=== PATIENT | female | born 2000 | race Caucasian/White ===

== ENCOUNTER 2022-12-26 16:10 | Emergency (ER) | payer OTHER, SELFPAY ==
[2022-12-26 16:25] VITALS: BP 123/72; PULSE 81; RESP 16; TEMP 36.9; O2SAT 99
--- NOTE | 2022-12-26 16:47 | ED.WOUNDLAC ---
HPI - Wound/Laceration General Chief Complaint: Wound/Laceration Stated Complaint: Left Hand Laceration Time Seen by Provider: 12/26/22 16:48 Source: patient Mode of arrival: ambulatory Limitations: no limitations History of Present Illness HPI narrative: Patient is a 22-year-old female that presents with 1 cm laceration to left hand from knife. Patient was moving and accidentally stabbed herself in the hand. unsure of last tetanus shot. Reports pain to 2nd and 3rd digit but no numbness, tingling, weakness. Active bleeding noted when palm is extended Related Data Home Medications Medication Instructions Recorded Confirmed spironolactone 50 mg tablet 50 mg PO DAILY 08/21/21 03/27/22 levonorgestrel-ethinyl estradiol tablet 12/26/22 0.1 mg-20 mcg tablet (Vienva) Allergies Allergy/AdvReac Type Severity Reaction Status Date / Time cat dander Allergy Unknown Unknown Verified 12/26/22 16:32 dog dander Allergy Unknown Unknown Verified 12/26/22 16:32 grass pollen Allergy Unknown Unknown Verified 12/26/22 16:32 mold Allergy Unknown Unknown Verified 12/26/22 16:32 Review of Systems Review of Systems: All systems reviewed & are unremarkable except as noted in HPI and below Constitutional: Constitutional: Denies body ache(s), Denies fever(s), Denies headache(s), Denies malaise and Denies weakness Eyes: Eyes: Denies loss of vision ENT: Denies otalgia, Denies headache(s), Denies nasal discharge, Denies sinus pain and Denies sore throat Cardiovascular: Cardiovascular: Denies chest pain, Denies irregular heart rhythm and Denies dyspnea Respiratory: Respiratory: Denies dyspnea Gastrointestinal: Gastrointestinal: Denies abdominal pain, Denies melena, Denies hematochezia, Denies diarrhea, Denies nausea and Denies vomiting Musculoskeletal: Musculoskeletal: Denies back pain, Denies myalgias and Denies arthralgias Integumentary/Breasts: Skin/Breast: Denies pruritus, Denies rash and Reports wounds (Laceration to left palm) Neurologic: Denies headache(s), Denies loss of vision and Denies weakness Psychiatric: Psychiatric: Reports no additional psychiatric complaints PMFSH Past Medical History Medical History Concussion age 16 Surgical History Surgical History H/O elbow surgery Family History Family History Father Depression Grandparent Breast cancer Depression Grandparent Depression Social History Social History (Updated 09/11/22 @ 10:45 by NATASHA Doss) Smoking status: Never smoker Alcohol intake: current Substance use: never Lack of Transportation: No Lack of Food: Never True Current Housing: I Have Housing Concerned About Future Housing: No Difficulty Paying Gas/Electric Bills: No Difficulty Paying for Meds: No Education: Bachelor's Degree Difficulty w/ Childcare or Family Care: No Living arrangements: with friend(s) Comments At time of signature, agree with nursing past medical, surgical, social and family history. There is no relevant family history pertinent to the presenting complaint. Exam Const: General: cooperative, healthy appearing, comfortable, no acute distress and well nourished Nutritional Appearance: well nourished Orientation/consciousness: patient oriented x3 Limitations: no limitations HENMT: Head: normal to inspection, normocephalic and atraumatic Ears: external ears normal Face/Nose/Sinus: Normal external nose present, normal facial exam and face symmetric Face and sinus: normal facial exam and face symmetric Mouth: Yes lip normal Eyes: General: appearance normal, both eyes and all related structures Alignment and Position: alignment normal and position normal Periorbital: periorbital findings normal Eyelids: eyelids normal Pupils: Equal, round and reactive pupils present
[2022-12-26] MEDS: TETANUS,DIPHTHERIA,AC PERTUSSIS ADULT (0.5 ML) BOOSTRIX IM (17:16)
--- NOTE | 2022-12-26 17:24 | PC.NURSE ---
spa coordinator in to do wound irrigation and skin glue.
== END 2022-12-26 17:36 | disposition home or self-care (01) ==
PROVIDERS: Emergency Provider Nurse Practitioner Family; PCP Emergency Medicine
DX: S61.412A Laceration without foreign body of left hand, initial encounter (principal); W26.0XXA Contact with knife, initial encounter; Z23 Encounter for immunization
CPT/HCPCS: 12001; 90471; 90715; 99212; G0463

== ENCOUNTER 2023-01-07 20:47 | Emergency (ER) | payer OTHER, SELFPAY ==
[2023-01-07 20:52] VITALS: BP 110/69; PULSE 104; RESP 20; TEMP 37.3; O2SAT 100
[2023-01-07 21:09] LABS: Hematocrit 44.6 % (37.0-47.0); Hemoglobin 14.7 g/dL (12.0-15.0); Mean Corpuscular Hemoglobin 28.7 pg (26-34); Mean Corpuscular Volume 87.1 fl (80-100); Mean Platelet Volume 10.4 fl (7.4-10.4); Platelet Count Result 365 k/mm3 (150-375); Red Blood Count 5.12 M/mm3 (4.2-5.4); Red Cell Distribution Width 12.5 % (11.5-14.5); White Blood Count 13.4 K/mm3 (4.5-10.0)
[2023-01-07 21:12] LABS: Appearance Urine Clear (Clear); Bacteria Urine 1+ /hpf; Bilirubin Urine Negative (Negative); Blood Urine Negative (Negative); Color Urine Yellow (Yellow); Glucose Urine UA Negative (Negative); Ketones Urine 4+ mg/dL (Negative); Leukocyte Esterase Ur Negative LEU/UL (Negative); Nitrate Urine Negative (Negative); Non Pathogenic Casts 0-2; Protein Urine Trace mg/dL (Negative); Squamous Epithelial Cell Urine Few /hpf (Few)
[2023-01-07 21:15] LABS: Add Urine Microscopic? YES; Specific Grav Ur 1.036 (1.001-1.035)
[2023-01-07 21:18] LABS: Alanine Aminotransferase 23 U/L (6-35); Albumin Level 4.6 g/dL (3.5-5.1); Alkaline Phosphatase 57 U/L (38-126); Anion Gap 9 mmol/L (8-16); Aspartate Amino Transferase 24 U/L (14-36); Bilirubin,Total 0.7 mg/dL (0.2-1.3); Blood Urea Nitrogen 20 mg/dL (7-17); Calcium 8.9 mg/dL (8.4-10.2); Carbon Dioxide 24 mmol/L (22-30); Chloride 105 mmol/L (98-107); Estimated CRCL calculation 94 ml/min; Estimated Glomerular Filt Rate > 60; Glucose 124 mg/dL (65-110); Lipase 45 U/L (23-300); Potassium 3.5 mmol/L (3.4-5.0); Sodium 138 mmol/L (137-145)
[2023-01-07 21:25] VITALS: BP 126/72; PULSE 97; RESP 15; TEMP 37.7; O2SAT 97
[2023-01-07 21:27] VITALS: BP 124/63; PULSE 96
[2023-01-07 21:28] VITALS: BP 100/61; BP 124/64; PULSE 102; PULSE 120
[2023-01-07 21:29] LABS: Band Neutrophils Percent 2 % (0-6); Lymphocytes Absolute Manual 0.67 K/mm3 (1.1-4.5); Monocytes Percent Manual 6 % (3-9); Neutrophils Absolute Manual 11.92 K/mm3 (1.7-7.2); Neutrophils Percent Manual 87 % (46-73); Platelet Estimate Adequate (Adequate); Schistocytes None Seen (NORMAL); Total Cells Counted 100
[2023-01-07] MEDS: SODIUM CHLORIDE 0.9% IV 1,000 ML 999 ML IV CONT ×2 (21:35→22:13)
[2023-01-07] MEDS: ONDANSETRON INJ 4 MG/2 ML VIAL IV PUSH (21:43)
[2023-01-07 21:45] LABS: Influenza A QL RT-PCR Negative (Negative); Influenza B QL RT-PCR Negative (Negative); RSV RNA, RT-PCR Negative (Negative); SARS-CoV-2 RNA PCR Negative (Negative)
--- NOTE | 2023-01-07 22:03 | ED.GENADULT ---
HPI - General Adult General Chief complaint: Nausea/Vomiting/Diarrhea <SAM Groves Last Filed: 01/08/23 01:24> Stated complaint: vomiting <SAM Groves Last Filed: 01/08/23 01:24> Time Seen by Provider: 01/07/23 21:24 <SAM Groves Last Filed: 01/08/23 01:24> Source: patient <SAM Groves Last Filed: 01/08/23 01:24> Mode of arrival: ambulatory <SAM Groves Last Filed: 01/08/23 01:24> Limitations: no limitations <SAM Groves Last Filed: 01/08/23 01:24> History of Present Illness HPI narrative: This is a 22-year-old female who presents to the ED with chief complaint of headache, body aches, chills, subjective fevers and nausea and vomiting that started around 0300 this morning. States that her body aches are worse in the back and lower legs. Denies known sick contacts. Denies sore throat, cough, chest pain, shortness of breath, diarrhea or abdominal pain. <SAM Groves Last Filed: 01/08/23 01:24> Related Data Home medications: Home Medications Medication Instructions Recorded Confirmed spironolactone 50 mg tablet 50 mg PO DAILY 08/21/21 03/27/22 levonorgestrel-ethinyl estradiol tablet 12/26/22 0.1 mg-20 mcg tablet (Vienva) <SAM Groves Last Filed: 01/08/23 01:24> Allergies/adverse reactions: Allergies Allergy/AdvReac Type Severity Reaction Status Date / Time cat dander Allergy Unknown Unknown Verified 12/26/22 16:32 dog dander Allergy Unknown Unknown Verified 12/26/22 16:32 grass pollen Allergy Unknown Unknown Verified 12/26/22 16:32 mold Allergy Unknown Unknown Verified 12/26/22 16:32 <SAM Groves Last Filed: 01/08/23 01:24> Review of Systems Review of Systems: CONSTITUTIONAL: See HPI EYES: Denies visual changes, redness, or discharge. ENT: Denies rhinorrhea, congestion, sore throat, or otalgia. CARDIOVASCULAR: Denies chest pain, palpitations, or edema. RESPIRATORY: Denies cough or dyspnea. GASTROINTESTINAL: See HPI GENITOURINARY: Denies dysuria or hematuria. SKIN: Denies rash or itching. MUSCULOSKELETAL: See HPI NEUROLOGIC: Denies headache, numbness, dizziness, or weakness. PSYCHIATRIC: Denies anxiety or depression. <SAM Groves Last Filed: 01/08/23 01:24> PMFSH Past Medical History Medical History: Medical History Concussion age 16 <SAM Groves Last Filed: 01/08/23 01:24> Surgical History Surgical History: Surgical History H/O elbow surgery <SAM Groves Last Filed: 01/08/23 01:24> Family History Family History: Family History Father Depression Grandparent Breast cancer Depression Grandparent Depression <SAM Groves Last Filed: 01/08/23 01:24> Social History Social History: Social History (Updated 09/11/22 @ 10:45 by NATASHA Doss) Smoking status: Never smoker Alcohol intake: current Substance use: never Lack of Transportation: No Lack of Food: Never True Current Housing: I Have Housing Concerned About Future Housing: No Difficulty Paying Gas/Electric Bills: No Difficulty Paying for Meds: No Education: Bachelor's Degree Difficulty w/ Childcare or Family Care: No Living arrangements: with friend(s) <SAM Groves Last Filed: 01/08/23 01:24> Exam Narrative: GENERAL: Well-appearing, well-nourished, and in no acute distress. HEAD: Normocephalic, atraumatic. EYES: PERRLA and EOMI. ENT: Nares clear, no rhinorrhea or epistaxis. Mucous membranes moist. Oropharynx without tonsillar hypertrophy exudate or other lesions. NECK: Supple. No adenopathy or masses. CHEST: No respiratory distress. Clear to auscultation. No wheezes rales or rhonchi HEART: Regular rate and rhythm. N
[2023-01-07 22:04] VITALS: BP 120/67; PULSE 94; RESP 15; O2SAT 99
[2023-01-08 00:11] VITALS: BP 117/65; PULSE 94; RESP 16; TEMP 37.4; O2SAT 98
== END 2023-01-08 00:12 | disposition home or self-care (01) ==
PROVIDERS: Emergency Medicine; Emergency Provider Physician Assistant; PCP Emergency Medicine
DX: B34.9 Viral infection, unspecified (principal); Z20.822 Contact with and (suspected) exposure to COVID-19
CPT/HCPCS: 36415; 80053; 81001; 81025; 83690; 85025; 87086; 87637; 96361; 96374; 96375; 99284; J0131; J2405; J7030

== ENCOUNTER → 2023-04-20 11:00 | Outpatient (CLI) | payer OTHER, SELFPAY ==
--- NOTE | ~2023-04-20 | XR_ITS ---
EXAMINATION: [id number] DATE: 04/20/2023 11:15 INDICATION: Neck pain. TECHNIQUE: 3 views of cervical spine were obtained. COMPARISON: None. FINDINGS: There is mild kyphosis of cervical spine. Vertebral body heights and intervertebral disc he ights are normal. The facet joints are unremarkable. No central canal stenosis or prevertebral soft t issue swelling. IMPRESSION: 1. No etiology for the patient's symptoms. Reviewed, dictated and finalized at location A.
== END ==
PROVIDERS: PCP Clinical Nurse Specialist; Visit Provider Clinical Nurse Specialist
DX: M54.2 Cervicalgia (principal); R51.9 Headache, unspecified
CPT/HCPCS: 72040